=== PATIENT | female | born 1970 | race Caucasian/White ===

== ENCOUNTER 2018-09-02 09:46 | Emergency (ER) | payer MEDICAID ==
[~2018-09-02] VITALS: Ht 177.8 cm; Wt 122.7 kg
[2018-09-02] MEDS ORDERED: IBUPROFEN 600 MG TABLET PO ONE (11:30)
[2018-09-02 12:05] VITALS: BP 128/76
== END 2018-09-02 12:15 | disposition home or self-care (01) ==
LOC: EMS 09:48
DX: K02.9 Dental caries, unspecified (principal); K04.01 Reversible pulpitis; Z88.5 Allergy status to narcotic agent; Z88.0 Allergy status to penicillin; Z88.2 Allergy status to sulfonamides; Z88.8 Allergy status to other drugs, medicaments and biological substances

== ENCOUNTER → 2018-11-11 | Emergency (ER) | payer MEDICAID ==
[~2018-11-11] VITALS: Ht 177.8 cm; Wt 127.3 kg
[~2018-11-11] MED LIST: BACITRACIN 0.9 GM PACKET OINTMENT TP ONE; KETOROLAC TROMETHAMINE 10 MG TABLET PO ONE; PERTUSS(ACELL),DIPH,TET VAC/PF 0.5 ML VIAL IM ONE; POVIDONE-IODINE 10% 15 ML SOLUTION UD TP ONE
[2018-11-11 19:31] VITALS: BP 129/78
== END | disposition home or self-care (01) ==
LOC: EMS 16:20
DX: S05.42XA Penetrating wound of orbit with or without foreign body, left eye, initial encounter (principal); S01.21XA Laceration without foreign body of nose, initial encounter; S81.011A Laceration without foreign body, right knee, initial encounter; Z88.1 Allergy status to other antibiotic agents; Z88.5 Allergy status to narcotic agent; Z88.0 Allergy status to penicillin; W19.XXXA Unspecified fall, initial encounter; Y93.89 Activity, other specified; Y92.89 Other specified places as the place of occurrence of the external cause; Y99.8 Other external cause status
CPT/HCPCS: 12011; 90471; 90715